=== PATIENT | male | born 1990 | race Caucasian/White ===

== ENCOUNTER 2017-10-11 19:05 | Emergency (ER) | payer OTHER ==
[~2017-10-11] VITALS: Ht 182.9 cm; Wt 96.3 kg
[~2017-10-11 19:05] MED LIST: AUGMENTIN875 MG PO; NOHOMEMEDS
[2017-10-11] MEDS ORDERED: MOTRIN600 MG PO (21:43)
[2017-10-11 21:55] VITALS: BP 136/75
== END 2017-10-11 22:00 | disposition home or self-care (01) ==
LOC: EME 19:05
DX: S80.12XA Contusion of left lower leg, initial encounter (principal); W19.XXXA Unspecified fall, initial encounter
CPT/HCPCS: 93971; 99281; 99283

== ENCOUNTER 2018-04-02 23:44 | Emergency (ER) | payer OTHER ==
[~2018-04-02] VITALS: Ht 185.4 cm; Wt 94.9 kg
[~2018-04-02 23:44] MED LIST changes: +MOTRIN600 MG PO
[2018-04-03 00:33] LABS: APPEARANCE CLEAR ((CLEAR)); BILIRUBIN NEGATIVE; BLOOD NEGATIVE; COLOR COLORLESS ((YELLOW)); GLUCOSE (STRIP) NEGATIVE; KETONES NEGATIVE; LEUKOCYTES NEGATIVE; NITRITE NEGATIVE; PROTEIN (STRIP) NEGATIVE; SPECIFIC GRAVITY 1.002 (1.000-1.030); UROBILINOGEN 0.2 MG/DL (0.2-1.0)
[2018-04-03 00:37] LABS: HEMATOCRIT 41.2 % (38.0-50.0); HEMOGLOBIN 14.7 G/DL (12.5-16.6); MCH 30.2 PG (29.0-34.0); MCHC 35.7 G/DL (30.0-36.0); MCV 84.8 FL (86-99); PLATELET COUNT 243 K/uL (156-360); RBC DIS.WIDTH-CV 11.8 % (11.8-14.6); RBC DIS.WIDTH-SD 35.9 % (39-53); RED BLOOD COUNT 4.86 M/uL (4.00-5.50); WHITE BLOOD COUNT 8.6 K/uL (4.1-10.2)
[2018-04-03 00:48] LABS: AMPHETAMINE NEGATIVE (500 ng/mL); BARBITURATES NEGATIVE (200 ng/mL); BENZODIAZEPINES NEGATIVE (150 ng/mL); BUPRENORPHINE NEGATIVE (10 ng/mL); COCAINE NEGATIVE (150 ng/mL); METHADONE NEGATIVE (200 ng/mL); METHAMPHETAMINE NEGATIVE (500 ng/mL); OPIATES (MORPHINE) NEGATIVE (100 ng/mL); OXYCODONE NEGATIVE (100 ng/mL); PHENCYCLIDINE NEGATIVE (25 ng/mL); PROPOXYPHENE NEGATIVE (300 ng/mL); THC CANNABINOIDS NEGATIVE (50 ng/mL); TRICYCLIC ANTIDEPRESSANTS NEGATIVE (300 ng/mL)
[2018-04-03 00:50] LABS: CHLORIDE 104 mEq/L (99-109); POTASSIUM 3.6 mEq/L (3.7-5.4); SODIUM 138 mEq/L (136-147)
[2018-04-03 00:51] LABS: GLUCOSE 100 mg/dL (70-99)
[2018-04-03 00:55] LABS: CREATININE 0.9 mg/dL (0.6-1.3); GFR ESTIMATE (CALCULATED) > 59 mL/min/ (58.99-99999)
[2018-04-03 00:56] LABS: UREA NITROGEN (BUN) 19 mg/dL (9-23)
[2018-04-03 00:58] LABS: CREATINE KINASE 159 IU/L (1-294)
[2018-04-03] MEDS ORDERED: VISTARIL50 MG PO (01:02)
[2018-04-03 01:52] VITALS: BP 113/68
== END 2018-04-03 01:54 | disposition home or self-care (01) ==
LOC: EME 23:44
PROVIDERS: Physician Assistant
DX: F41.0 Panic disorder [episodic paroxysmal anxiety] (principal); Z88.1 Allergy status to other antibiotic agents
CPT/HCPCS: 80048; 81003; 82550; 85027; 99281; 99284